=== PATIENT | female | born 1980 | race Caucasian/White ===

== ENCOUNTER 2024-10-28 13:26 | Emergency (ER) | payer OTHER ==
[~2024-10-28] VITALS: Ht 167.6 cm; Wt 114.5 kg
[2024-10-28 13:41] VITALS: BP 127/69; PULSE 73; RESP 16; TEMP 98.4; O2SAT 98
== END 2024-10-28 15:24 | disposition home or self-care (01) ==
LOC: EMS 13:29
DX: T16.1XXA Foreign body in right ear, initial encounter (principal); W44.F9XA Other object of natural or organic material, entering into or through a natural orifice, initial encounter; Y93.89 Activity, other specified; Y92.89 Other specified places as the place of occurrence of the external cause; Y99.8 Other external cause status
CPT/HCPCS: 69200; 99284; Z7502

== ENCOUNTER 2025-04-23 03:10 | Emergency (ER) | payer OTHER ==
[~2025-04-23] VITALS: Ht 165.1 cm; Wt 112.0 kg
[~2025-04-23 03:10] MED LIST: ACET-66 PO; DIPH-1130 PO; ONDA-104 PO
[2025-04-23] MEDS: LIDOCAINE 1% 10 ML VIAL SQ ONE (05:08)
[2025-04-23] MEDS ORDERED: AMOX1TAB15 PO (05:44)
[2025-04-23 06:00] VITALS: BP 135/81; PULSE 79; RESP 16; TEMP 97.9; O2SAT 100
[2025-04-23] MEDS: PERTUSS(ACELL),DIPH,TET/PF 0.5 ML SYRINGE [ADULT] IM. ONE (06:15)
[2025-04-23] MEDS: BACITRACIN 0.9 GM PACKET OINTMENT TP ONE (06:16)
[2025-04-23] MEDS: AMOX TR/POT CLAV 875 MG/125 MG TABLET PO ONE (06:16)
== END 2025-04-23 06:17 | disposition home or self-care (01) ==
LOC: EMS 04:11
DX: S01.511A Laceration without foreign body of lip, initial encounter (principal); W54.0XXA Bitten by dog, initial encounter; Y93.89 Activity, other specified; Y92.89 Other specified places as the place of occurrence of the external cause; Y99.8 Other external cause status
CPT/HCPCS: 99283; 90715; 12011; J3490